=== PATIENT | female | born 1995 | race Caucasian/White ===

== ENCOUNTER → 2019-08-29 | Outpatient (CLI) ==
[~2019-08-29] MED LIST: BIRTH CONTROL; CIPR-225 PO; HYDR-3730 PO; LEVO1TAB20 PO; LEVO1TAB9 PO; NITR100C10 PO; ONDA4TAB11 PO
== END ==
LOC: LABNPT 11:30 → MERGE 11:30
PROVIDERS: ATTEND Obstetrics & Gynecology
DX: Z53.9 Procedure and treatment not carried out, unspecified reason (principal)

== ENCOUNTER → 2019-08-30 | Outpatient (CLI) | payer BC ==
--- NOTE | 2019-08-30 13:37 | Diagnostic Imaging Report ---
INDICATION: Vaginal bleeding. FINDINGS: There is an intrauterine gestational sac containing a pole. Gestation is approximately 6 weeks 5 days. heart rate was recorded at 132 bpm. Gestational sac shape is within normal limits. No isaura-gestational sac hemorrhage is detected. The right ovary measures 4.5 x 3.2 x 2.2 cm and the left ovary measures 2.5 x 1.7 x 1.3 cm. Right ovary does contain a 2 cm cyst. Left ovary is unremarkable. IMPRESSION: Single live IUP 6 weeks 5 days gestational age. Estimated date of confinement sonographically is 04/19/2020. Dictated by: Dictated on workstation # [id number]
== END ==
LOC: MERGE 12:35 → RAD 12:35
PROVIDERS: ATTEND Obstetrics & Gynecology
DX: O20.9 Hemorrhage in early pregnancy, unspecified (principal); Z3A.01 Less than 8 weeks gestation of pregnancy
CPT/HCPCS: 76801; 76817

== ENCOUNTER → 2019-12-04 | Outpatient (CLI) | payer BC ==
--- NOTE | 2019-12-04 11:04 | Diagnostic Imaging Report ---
INDICATION: survey. TECHNIQUE: Multiple real-time grayscale images were obtained over the gravid uterus. COMPARISON: 08/30/2019. FINDINGS: There is a single live fetus in a cephalic presentation. heart rate was recorded at 146 bpm. Placenta is anterior. Amniotic fluid index is 16.3 cm. Cervical length is 4.7 cm. survey demonstrates kidneys, bladder and stomach to be unremarkable. There is a three-vessel cord with normal insertion. spine is unremarkable. brain and four-chamber heart views are somewhat limited due to position. Biometrical measurements are as follows: Biparietal 4.89 cm, age 20 weeks 6 days. Head circumference 18.68 cm, age 21 weeks 1 days. Abdominal circumference 15.41 cm, age 20 weeks 5 days. Femur length 3.62 cm, age 21 weeks 4 days. Sonographic estimate age: 21 weeks 1 days. Sonographic estimated date of delivery: 04/14/2020. Estimated Weight: 392 gm (+/- 57 gm). LMP percentile: 69%. heart rate: 146 beats per minute. number: 1 of 1. IMPRESSION: Single live IUP approximately 21 weeks gestational age showing normal interval growth when compared with prior exam. No complicating features are detected. brain anatomy and 4-chamber heart views are somewhat limited due to position and follow-up could be performed. Dictated by: Dictated on workstation # [id number]
== END ==
LOC: RAD 09:48
PROVIDERS: ATTEND Nurse Practitioner Women's Health
DX: Z36.89 Encounter for other specified antenatal screening (principal); Z3A.21 21 weeks gestation of pregnancy
CPT/HCPCS: 76805

== ENCOUNTER → 2020-01-17 | Outpatient (CLI) | payer BC ==
--- NOTE | 2020-01-17 14:36 | Diagnostic Imaging Report ---
INDICATION: Followup anatomy. TECHNIQUE: Multiple real-time grayscale images were obtained over the gravid uterus. COMPARISON: 12/04/2019 FINDINGS: There is a single live fetus in a cephalic presentation. heart motion was detected but heart rate was not measured. Placenta is anterior. There is a four-chamber heart. brain appears unremarkable. IMPRESSION: Unremarkable limited followup obstetrical ultrasound. Dictated by: Dictated on workstation # [id number]
== END ==
LOC: RAD 12:59
PROVIDERS: ATTEND Obstetrics & Gynecology
DX: Z36.9 Encounter for antenatal screening, unspecified (principal); Z3A.22 22 weeks gestation of pregnancy
CPT/HCPCS: 76816

== ENCOUNTER → 2021-04-16 | Outpatient (CLI) | payer BC ==
[~2021-04-16] MED LIST changes: +ACET-93 PO; +DCS100C PO; +FERR325T18 PO; +IBUP-844 PO; +PREN1TAB79 PO
--- NOTE | 2021-04-16 13:22 | Diagnostic Imaging Report ---
INDICATION: survey TECHNIQUE: Multiple real-time grayscale images were obtained over the gravid uterus. COMPARISON: None FINDINGS: There are no prior studies available for comparison. There is a single live fetus in breech presentation. heart motion is noted and a rate of 146 BPM is recorded. There were no abnormalities identified. The placenta is posterior and there is no previa. The amniotic fluid volume is within normal limits. The cervix was identified and measures 3.0 cm in length (normal 3.0 cm or greater). The growth perimeters are fairly uniform. Biometrical measurements are as follows: Biparietal 4.7 cm, age 20 weeks 2 days. Head circumference 17.42 cm, age 20 weeks 0 days. Abdominal circumference 14.74 cm, age 20 weeks 1 days. Femur length 3.46 cm, age 21 weeks 0 days. Sonographic estimate age: 20 weeks 3 days. Sonographic estimated date of delivery: 08/31/21. Estimated Weight: 350 gm (+/- +/- 51g gm). LMP percentile: 59%. heart rate: 146 beats per minute. number: 1 of 1. IMPRESSION: 1. There is a single live fetus in breech presentation of approximately 20 weeks 3 days gestation +/- 1.5 weeks. EDC is 08/31/2021. 2. There are no abnormalities identified. 3. The growth perimeters are fairly uniform. Dictated by: Dictated on workstation # [id number]
== END ==
LOC: RAD 12:00
PROVIDERS: ATTEND Obstetrics & Gynecology
DX: Z34.92 Encounter for supervision of normal pregnancy, unspecified, second trimester (principal); Z3A.20 20 weeks gestation of pregnancy
CPT/HCPCS: 76805

== ENCOUNTER → 2021-05-13 | Outpatient (CLI) | payer BC ==
--- NOTE | 2021-05-13 16:01 | Diagnostic Imaging Report ---
INDICATION: Followup cervical length. TECHNIQUE: Multiple real-time grayscale images were obtained over the gravid uterus. COMPARISON: 04/16/2021. FINDINGS: There is single live fetus in a transverse presentation head to maternal right. Heart rate was recorded 142 bpm. Placenta is posterior. Amniotic fluid index is normal. Cervical length is 4.2 cm. IMPRESSION: Cervical length 4.2 cm on today's study. Dictated by: Dictated on workstation # [id number]
== END ==
LOC: RAD 12:00
PROVIDERS: ATTEND Obstetrics & Gynecology
DX: Z36.1 Encounter for antenatal screening for raised alphafetoprotein level (principal); Z36.89 Encounter for other specified antenatal screening
CPT/HCPCS: 76816

== ENCOUNTER 2021-08-31 10:14 | Inpatient (IN) | payer BC ==
[2021-08-31] VITALS (49 sets, daily range): BP systolic 86–158; BP diastolic 41–98
[~2021-08-31] VITALS: Ht 170.2 cm; Wt 91.3 kg
[~2021-08-31 10:14] MED LIST changes: -DCS100C PO; +DOCU-239 PO
[2021-08-31 10:45] LABS: BILIRUBIN,URINE NEGATIVE (NEGATIVE); CLARITY,URINE CLEAR; COLOR,URINE YELLOW; GLUCOSE, URINE (UA) NEGATIVE (NEGATIVE); KETONES,URINE NEGATIVE (NEGATIVE); LEUKOCYTE ESTERASE ,URINE 2+ (NEGATIVE); NITRITE,URINE NEGATIVE (NEGATIVE); PROTEIN,URINE NEGATIVE (NEGATIVE)
[2021-08-31 11:01] LABS: BACTERIA,URINE FEW /HPF
[2021-08-31] MEDS ORDERED: D5 LR IV SOLUTION 1,000 ML IV SCH (11:30)
[2021-08-31] MEDS ORDERED: MINERAL OIL CONCENTRATE 99.9% 15 ML UDC TOP PRN (11:30)
[2021-08-31 11:49] LABS: BASOPHILS % (AUTO) 0 % (0-10); EOSINOPHILS # (AUTO) 0.1 10^3/uL (0.0-0.3); EOSINOPHILS % (AUTO) 1 % (0-10); HEMATOCRIT 34 % (35-52); HEMOGLOBIN 10.8 g/dL (11.5-16.0); LYMPHOCYTES # (AUTO) 1.7 10^3/uL (1.0-4.0); LYMPHOCYTES % (AUTO) 21 % (12-44); MEAN CORPUSCULAR HEMOGLOBIN 25 pg (25-34); MEAN CORPUSCULAR HGB CONC 32 g/dL (32-36); MEAN CORPUSCULAR VOLUME 81 fL (80-99); MEAN PLATELET VOLUME 11.1 fL (9.0-12.2); MONOCYTES # (AUTO) 0.5 10^3/uL (0.0-1.0); MONOCYTES % (AUTO) 6 % (0-12); NEUTROPHILS # (AUTO) 5.9 10^3/uL (1.8-7.8); NEUTROPHILS % (AUTO) 73 % (42-75); PLATELET COUNT 195 10^3/uL (130-400); WHITE BLOOD COUNT 8.1 10^3/uL (4.3-11.0)
[2021-08-31] MEDS ORDERED: FLU QUADRIvalent (3YOA+) 60 mcg/0.5 ml 2021-22(AFLURIA) IM ONE (13:30)
[2021-08-31] MEDS ORDERED: CATHETER FLUSH 10 ML SYR IV SCH (14:00)
[2021-08-31] MEDS ORDERED: fentaNYL 2 mcg/ml BUPIVA 0.125 100 ML ONE (14:59)
[2021-08-31] MEDS ORDERED: fentaNYL INJ 100 MCG/2 ML AMP ONE (15:05)
[2021-08-31] MEDS ORDERED: BUPIVACAINE 0.25% 30 ML (SENSORCAINE) VIAL ONE (15:05)
[2021-08-31] MEDS ORDERED: ONDANSETRON 4 MG/2 ML (SDV) Z0FRAN IV PRN (15:15)
[2021-08-31] MEDS ORDERED: LACTATED RINGERS 1,000 ML IV ONE ×2 (15:15→17:00)
[2021-08-31] MEDS ORDERED: fentaNYL 2 mcg/ml BUPIVA 0.125 100 ML IV SCH (15:15)
[2021-08-31] MEDS ORDERED: CATHETER FLUSH 10 ML SYR IV PRN (15:15)
[2021-08-31] MEDS ORDERED: NALOXONE 0.4 MG/ML 1 ML (NARCAN) VIAL IV PRN ×2 (15:15→23:45)
[2021-08-31] MEDS ORDERED: diphenhydrAMINE 50 MG/ML INJ (BENADRYL) IV PRN (15:15)
[2021-08-31] MEDS ORDERED: OXYTOCIN PRE-MIX DRIP 500 ML IV SCH ×2 (16:30→23:45)
--- NOTE | 2021-08-31 20:23 | History & Physical-OB ---
OB - Chief Complaint & HPI Date/Time Date of Admission: Date of Admission: Aug 31, 2021 at 11:25 Date seen by a Provider: Aug 31, 2021 Time Seen by a Provider: 13:00 Chief Complaint/History OB-Reason for Admission/Chief: Onset of Labor Hx : 2 Hx Para: 1 Expected Date of Delivery: Sep 02, 2021 Gestational Age in Weeks: 39 Gestational Age in Days: 5 Other reason for admission: Patient presents with complaint of contractions. She was 4 cm dilated on admission and ivon every 6 minutes. Was 2-3 cm in the office. Scheduled for induction on 09/02/2021., Admission Nurse Assessment Rev: Yes History of Labs O+/- HIV - HBsAg - Hep C - Rub I VDRL NR GBS - Other Uncomplicated Allergies and Home Medications Allergies Coded Allergies: Sulfa (Sulfonamide Antibiotics) (Verified Allergy, Unknown, 06/27/16) Patient Home Medication List Home Medication List Reviewed: Yes Ferrous Sulfate (Ferrous Sulfate) 325 Mg Tablet, 325 MG PO DAILY Prescribed by: ARTHUR BRIDGES on 04/15/20837 Vit W-Ca,Fe,FA(<1 mg) ( Vitamins) 1 Each Tablet, 1 EACH PO DAILY, (Reported) Entered as Reported by: GISELLA PARKER on 04/13/20 183 Discontinued Medications Acetaminophen (Acetaminophen) 500 Mg Tablet, 1,000 MG PO Q8HR Discontinued Reason: No Longer Taking Prescribed by: ARTHUR BRIDGES on 04/15/20837 Last Action: Discontinued Docusate Sodium (Dok) 100 Mg Capsule, 100 MG PO BID Discontinued Reason: No Longer Taking Prescribed by: ARTHUR BRIDGES on 04/15/20837 Last Action: Discontinued Ibuprofen (Ibu) 600 Mg Tablet, 600 MG PO Q6HR Discontinued Reason: No Longer Taking Prescribed by: ARTHUR BRIDGES on 04/15/20837 Last Action: Discontinued OB - History Hx of Present Care: Yes Ultrasounds: Normal mid trimester US Obstetrical Complications: None Medical Complications: None Information Induced Hypertension: No Maternal Gestational Diabetes: No Hemorrhage: No Obstetrical History Hx : 2 Hx Para: 1 Hx # Term Pregnancies: 1 Hx # Pregnancies: 0 Number of Living Children: 1 Hx Termination: No Hx Multiple Gestation: No Hx Ectopic : No Hx Stillbirth: No Hx Complication: No Hx Induced Hypertens: No Hx Maternal Gestational Diabet: No Hx Hemorrhage: No Delivery History Hx Dystocia: No Hx Forceps Assisted Delivery: No Hx Vacuum Extraction Assisted: No Hx Placenta Abnormality: No Hx Distress: No Hx Large For Gestational Age I: No Hx Small for Gestational Age I: No Hx Section: No Hx Blood Disorders: No Adverse Rxn to Tranfusion: No Patient Past Medical History NC Social History/Family History Alcohol Use: Denies Use Recreational Drug Use: No Smoking Cessation: Never smoker Immunizations Hepatitis A: Yes Hepatitis B: Yes Tetanus Booster (TDap): Less than 5yrs (06/17/21) Date of Influenza Vaccine: Aug 20, 2015 Rubella: immune RPR/VDRL: Negative GBS Status: Negative HBsAG: Negative OB - Admission Exam Physical Exam Vitals: Vital Signs 08/31/21 08/31/21 18:15 19:45 Temp 36.8 Pulse 75 Resp 18 B/P (MAP) 129/84 (99) Pulse Ox 100 O2 Delivery Room Air HEENT: NCAT Heart: Rhythm Normal Lungs: Clear Abdomen: Gravid Extremities: Normal Reflexes: Normal Cervical Dilatation: 4cm Effacement: 75% Station: -2 Membranes: Intact Heart Rate: 140's Accelerations: Accelerations Present Decelerations: No Decelerations Short Term Variability: Present [place] Variability: Average (6-25) Contractions on Admission: 6-10 Minutes Apart Labs Laboratory Tests Test 08/31/21 10:25 08/31/21 11:36 Range/Units Urine Color YELLOW Urine Clarity CLEAR Urine pH 7.0 5-9 Urine Specific [place] <=1.005 1.016-1.022 Urine Protein NEGATIVE NEGATIVE Urine Glucose (UA) NEGATIVE NEGATIVE Urine Ketones NEGATIVE NEGATIVE Urine Nitrite NEGATIVE NEGATIVE Urine Bilirubin NEGATIVE NEGATIVE Urine Urobilinogen 0.2 < = 1.0 MG/DL Urine Leukocyte Esterase 2+ H NEGATIVE Urine RBC (Auto) NEGATIVE NEGATIVE Urine RBC NONE /HPF Urine WBC 5-10 H /HPF Urine Squamous Epithelial Cells 5-10 /HPF Urine Crystals NONE /LPF Urine Bacteria FEW H /HPF Urine Casts NONE /LPF Urine Mucus NEGATIVE /LPF Urine Culture Indicated YES White Blood Count 8.1 4.3-11.0 10^3/uL Red Blood Count 4.25 3.80-5.11 10^6/uL Hemoglobin 10.8 L 11.5-16.0 g/dL Hematocrit 34 L 35-52 % Mean Corpuscular Volume 81 80-99 fL Mean Corpuscular Hemoglobin 25 25-34 pg Mean Corpuscular Hemoglobin Concent 32 32-36 g/dL Red Cell Distribution Width 13.8 10.0-14.5 % Platelet Count 195 130-400 10^3/uL Mean Platelet Volume 11.1 9.0-12.2 fL Immature Granulocyte % (Auto) 1 % Neutrophils (%) (Auto) 73 42-75 % Lymphocytes (%) (Auto) 21 12-44 % Monocytes (%) (Auto) 6 0-12 % Eosinophils (%) (Auto) 1 0-10 % Basophils (%) (Auto) 0 0-10 % Neutrophils # (Auto) 5.9 1.8-7.8 10^3/uL Lymphocytes # (Auto) 1.7 1.0-4.0 10^3/uL Monocytes # (Auto) 0.5 0.0-1.0 10^3/uL Eosinophils # (Auto) 0.1 0.0-0.3 10^3/uL Basophils # (Auto) 0.0 0.0-0.1 10^3/uL Immature Granulocyte # (Auto) 0.0 0.0-0.1 10^3/uL OB - Assessment/Plan/Diagnosis Assessment Assessment: active labor Admission Dx 39 weeks labor Admission Status: Inpatient Order (span 2 midnights) Reason for Inpatient Admission: labor Plan Plan: Expectant Management ARTHUR BRIDGES DO Aug 31, 2021 20:23
[2021-08-31] MEDS ORDERED: LIDOCAINE/EPI 2% 1:200,00 (XYLOCAINE) 20 ML VIAL ONE (23:23)
--- NOTE | 2021-08-31 23:42 | OB Labor & Delivery Record ---
Vag Delivery Note Vag Delivery Note Date of Delivery: 08/31/21 Preoperative Diagnosis: Kerry Hay is a 26 /Para 2 / 1, Gestational Age 39 5/7 weeks in labor Postoperative Diagnosis: Same Surgeon: ARTHUR BRIDGES Anesthesia: epidural, local Delivery Type: vacuum assisted vaginal delivery Findings: [] Viable male infant, apgars 8/9, weight 10#4 ounces Lacerations: 2nd degree Intact placenta with 3 vessel cord. No nuchal cord, body cord or shoulder dystocia Estimated Blood Loss: 400 ml Complications: None Condition: Stable Description of Procedure: The patient is a 26 year old female who presented in labor. She was admitted and informed consent was obtained. Her labor course was remarkable for augmentation with pitocin, AROM at 8 cm. She progressed to complete dilatation and began to push. She was then set up for delivery. Due to prolonged deceleration of heartrate to 70-90 bpm, the vacuum was placed at + 2 station. With 2 contractions and 6 pushes, 1 popoff, the 's head was delivered atraumatically in the LIZANDRO position. The shoulders and remainder of the infant's body were then delivered without difficulty. Upon delivery, the head was held below the level of the perineum and the mouth and nares were bulb suctioned. The cord was doubly clamped and cut and the infant was handed off to the pediatric staff. An intact placenta with 3-vessel cord delivered via Eric and there was found to be minimal bleeding.~ Vigorous fundal massage was performed and the fundus was found to be firm. IV oxytocin was given. Examination of the vagina and perineum revealed a 2nd degree laceration repaired in the usual fashion with 3-0 vicryl suture. Following the repair, sponge, instrument and needle counts were correct. Mom and baby were both in stable condition in the labor suite. Vitals - Labs Vital Signs - I&O Vital Signs Date Time Temp Pulse Resp B/P (MAP) Pulse Ox O2 Delivery O2 Flow Rate FiO2 08/31/21 22:30 72 18 144/89 (107) Room Air 08/31/21 22:15 75 18 136/87 (103) Room Air 08/31/21 22:00 76 18 129/84 (99) Room Air 08/31/21 21:45 76 18 130/83 (99) Room Air 08/31/21 21:30 73 18 131/86 (101) Room Air 08/31/21 21:15 86 18 135/86 (102) Room Air 08/31/21 21:00 77 18 139/91 (107) Room Air 08/31/21 20:45 81 18 142/84 (103) Room Air 08/31/21 20:30 80 18 130/86 (101) Room Air 08/31/21 20:15 37.1 89 18 144/85 (104) Room Air 08/31/21 20:00 77 18 135/89 (104) Room Air 08/31/21 19:45 75 18 129/84 (99) Room Air 08/31/21 19:30 74 18 131/86 (101) Room Air 08/31/21 19:15 71 18 129/86 (100) Room Air 08/31/21 19:00 72 18 130/86 (101) Room Air 08/31/21 18:45 73 18 127/84 (98) Room Air 08/31/21 18:30 68 18 131/83 (99) Room Air 08/31/21 18:15 36.8 81 18 142/72 (95) 100 Room Air 08/31/21 18:00 68 18 126/84 (98) 98 Room Air 08/31/21 17:45 75 18 125/84 (98) 98 Room Air 08/31/21 17:30 73 18 123/84 (97) 97 Room Air 08/31/21 17:15 77 18 121/78 (92) 97 Room Air 08/31/21 17:00 72 18 122/77 (92) 99 Room Air 08/31/21 16:45 74 18 137/83 (101) 99 Room Air 08/31/21 16:30 81 18 123/84 (97) 97 Room Air 08/31/21 16:15 80 18 122/78 (93) 99 Room Air 08/31/21 15:58 36.1 78 18 123/81 (95) 99 Room Air 08/31/21 15:55 78 18 116/76 (89) 99 Room Air 08/31/21 15:52 69 18 121/83 (96) 99 Room Air 08/31/21 15:50 60 18 121/85 (97) 99 Room Air 08/31/21 15:47 59 18 86/51 (63) 99 Room Air 08/31/21 15:45 51 18 101/41 (61) 99 Room Air 08/31/21 15:40 85 18 129/77 (94) 93 Room Air 08/31/21 15:39 72 18 110/70 (83) 97 Room Air 08/31/21 15:35 74 18 127/75 (92) 97 Room Air 08/31/21 15:31 93 18 125/75 (92) 96 Room Air 08/31/21 15:28 82 18 122/73 (89) 94 Room Air 08/31/21 15:25 85 18 140/70 (93) 96 Room Air 08/31/21 15:21 36.9 91 18 97 Room Air 08/31/21 15:20 86 18 134/87 (103) 99 Room Air 08/31/21 15:19 79 18 137/88 (104) 99 Room Air 08/31/21 15:16 93 18 158/98 (118) 99 Room Air 08/31/21 15:13 93 18 158/98 (118) 99 Room Air 08/31/21 13:00 85 18 136/94 (108) Room Air Labs Laboratory Tests 08/31/21 10:25: Urine Color YELLOW, Urine Clarity CLEAR, Urine pH 7.0, Urine Specific [place] <=1.005, Urine Protein NEGATIVE, Urine Glucose (UA) NEGATIVE, Urine Ketones NEGATIVE, Urine Nitrite NEGATIVE, Urine Bilirubin NEGATIVE, Urine Urobilinogen 0.2, Urine Leukocyte Esterase 2+H, Urine RBC (Auto) NEGATIVE, Urine RBC NONE, Ur ine WBC 5-10H, Urine Squamous Epithelial Cells 5-10, Urine Crystals NONE, Urine Bacteria FEWH, Urine Casts NONE, Urine Mucus NEGATIVE, Urine Culture Indicated YES 08/31/21 11:36: White Blood Count 8.1, Red Blood Count 4.25, Hemoglobin 10.8L, Hematocrit 34L, Mean Corpuscular Volume 81, Mean Corpuscular Hemoglobin 25, Mean Corpuscular Hemoglobin Concent 32, Red Cell Distribution Width 13.8, Platelet Count 195, Mean Platelet Volume 11.1, Immature Granulocyte % (Auto) 1, Neutrophils (%) (Auto) 73, Lymphocytes (%) (Auto) 21, Monocytes (%) (Auto) 6, Eosinophils (%) (Auto) 1, Basophils (%) (Auto) 0, Neutrophils # (Auto) 5.9, Lymphocytes # (Auto) 1.7, Monocytes # (Auto) 0.5, Eosinophils # (Auto) 0.1, Basophils # (Auto) 0.0, Immature Granulocyte # (Auto) 0.0 ARTHUR BRIDGES DO Aug 31, 2021 23:42
[2021-08-31] MEDS ORDERED: DIBUCAINE 1% OINTMENT 30 GM TUBE TOP PRN (23:45)
[2021-08-31] MEDS ORDERED: TETANUS,DIPTH,PERTUSS P/F (BOOSTRIX) 0.5 ML VIAL IM ONE (23:45)
[2021-08-31] MEDS ORDERED: BENZOCAINE/MENTHOL (DERMOPLAST) 56 ML CAN TP PRN (23:45)
[2021-08-31] MEDS ORDERED: WITCH HAZEL(TUCKS) 40 EA JAR TOP PRN (23:45)
[2021-08-31] MEDS ORDERED: MEASLES,MUMPS,RUBELLA 1 EA INJ SQ ONE (23:45)
[2021-09-01] VITALS (8 sets, daily range): BP systolic 131–158; BP diastolic 76–89
[2021-09-01] MEDS: IBUPROFEN 600 MG (MOTRIN) TAB PO SCH ×4 (01:52→20:37)
[2021-09-01 05:39] LABS: BASOPHILS % (AUTO) 0 % (0-10); EOSINOPHILS % (AUTO) 0 % (0-10); HEMATOCRIT 29 % (35-52); HEMOGLOBIN 9.2 g/dL (11.5-16.0); LYMPHOCYTES # (AUTO) 1.4 10^3/uL (1.0-4.0); LYMPHOCYTES % (AUTO) 10 % (12-44); MEAN CORPUSCULAR HEMOGLOBIN 25 pg (25-34); MEAN CORPUSCULAR HGB CONC 31 g/dL (32-36); MEAN CORPUSCULAR VOLUME 80 fL (80-99); MEAN PLATELET VOLUME 10.9 fL (9.0-12.2); MONOCYTES # (AUTO) 0.9 10^3/uL (0.0-1.0); MONOCYTES % (AUTO) 6 % (0-12); NEUTROPHILS # (AUTO) 11.5 10^3/uL (1.8-7.8); NEUTROPHILS % (AUTO) 83 % (42-75); PLATELET COUNT 162 10^3/uL (130-400); WHITE BLOOD COUNT 13.8 10^3/uL (4.3-11.0)
[2021-09-01] MEDS ORDERED: CATHETER FLUSH 10 ML SYR IV SCH (06:00)
[2021-09-01] MEDS: ACETAMINOPHEN 500 MG TAB (TYLENOL) PO SCH ×3 (06:30→22:30)
[2021-09-01] MEDS: DOCUSATE SODIUM 100 MG (COLACE) CAP PO SCH ×2 (08:12→20:37)
[2021-09-01] MEDS: PRENATAL VITAMIN 1 EA TAB PO SCH (08:13)
[2021-09-01] MEDS: FERROUS SULF 325 MG (IRON) TAB PO SCH (08:13)
--- NOTE | 2021-09-01 10:13 | Postpartum Progress Note ---
Note Note Day # 1 Subjective: Patient is without complaints. Ambulating, voiding. Tolerating a regular diet without nausea or vomiting. Normal lochia. Pain is well controlled with oral pain medications. Breast feeding. Objective: Physical Exam: General - Alert and oriented, no apparent distress Abdomen - Soft, appropriately tender to palpation, non-distended, fundus firm at umbilicus Extremities - no edema, negative Ariana's bilaterally Assessment: Post- day # 1, status post vaginal delivery. Recovering well, hemodynamically stable Acute blood loss anemia Plan: Routine care. Encourage breast feeding. Encourage ambulation. Ferrous sulfate supplementation. Plan for discharge tomorrow Vitals - Labs Vital Signs - I&O Vital Signs Date Time Temp Pulse Resp B/P (MAP) Pulse Ox O2 Delivery O2 Flow Rate FiO2 09/01/21 08:14 36.4 77 18 133/76 (95) 98 Room Air 09/01/21 05:00 37.1 74 18 154/86 (108) Room Air 09/01/21 00:45 76 18 158/83 (108) Room Air 09/01/21 00:30 86 18 131/85 (100) Room Air 09/01/21 00:00 101 18 149/85 (106) Room Air 08/31/21 23:45 72 18 143/86 (105) Room Air 08/31/21 23:30 100 18 145/89 (107) Room Air 08/31/21 23:15 73 18 141/98 (112) Room Air 08/31/21 23:00 72 18 140/85 (103) Room Air 08/31/21 22:45 72 18 144/89 (107) Room Air 08/31/21 22:30 72 18 144/89 (107) Room Air 08/31/21 22:15 75 18 136/87 (103) Room Air 08/31/21 22:00 76 18 129/84 (99) Room Air 08/31/21 21:45 76 18 130/83 (99) Room Air 08/31/21 21:30 73 18 131/86 (101) Room Air 08/31/21 21:15 86 18 135/86 (102) Room Air 08/31/21 21:00 77 18 139/91 (107) Room Air 08/31/21 20:45 81 18 142/84 (103) Room Air 08/31/21 20:30 80 18 130/86 (101) Room Air 08/31/21 20:15 37.1 89 18 144/85 (104) Room Air 08/31/21 20:00 77 18 135/89 (104) Room Air 08/31/21 19:45 75 18 129/84 (99) Room Air 08/31/21 19:30 74 18 131/86 (101) Room Air 08/31/21 19:15 71 18 129/86 (100) Room Air 08/31/21 19:00 72 18 130/86 (101) Room Air 08/31/21 18:45 73 18 127/84 (98) Room Air 08/31/21 18:30 68 18 131/83 (99) Room Air 08/31/21 18:15 36.8 81 18 142/72 (95) 100 Room Air 08/31/21 18:00 68 18 126/84 (98) 98 Room Air 08/31/21 17:45 75 18 125/84 (98) 98 Room Air 08/31/21 17:30 73 18 123/84 (97) 97 Room Air 08/31/21 17:15 77 18 121/78 (92) 97 Room Air 08/31/21 17:00 72 18 122/77 (92) 99 Room Air 08/31/21 16:45 74 18 137/83 (101) 99 Room Air 08/31/21 16:30 81 18 123/84 (97) 97 Room Air 08/31/21 16:15 80 18 122/78 (93) 99 Room Air 08/31/21 15:58 36.1 78 18 123/81 (95) 99 Room Air 08/31/21 15:55 78 18 116/76 (89) 99 Room Air 08/31/21 15:52 69 18 121/83 (96) 99 Room Air 08/31/21 15:50 60 18 121/85 (97) 99 Room Air 08/31/21 15:47 59 18 86/51 (63) 99 Room Air 08/31/21 15:45 51 18 101/41 (61) 99 Room Air 08/31/21 15:40 85 18 129/77 (94) 93 Room Air 08/31/21 15:39 72 18 110/70 (83) 97 Room Air 08/31/21 15:35 74 18 127/75 (92) 97 Room Air 08/31/21 15:31 93 18 125/75 (92) 96 Room Air 08/31/21 15:28 82 18 122/73 (89) 94 Room Air 08/31/21 15:25 85 18 140/70 (93) 96 Room Air 08/31/21 15:21 36.9 91 18 97 Room Air 08/31/21 15:20 86 18 134/87 (103) 99 Room Air 08/31/21 15:19 79 18 137/88 (104) 99 Room Air 08/31/21 15:16 93 18 158/98 (118) 99 Room Air 08/31/21 15:13 93 18 158/98 (118) 99 Room Air 08/31/21 13:00 85 18 136/94 (108) Room Air I & O 09/01/21 07:00 Intake Total 2000 ml Balance 2000 ml Labs Laboratory Tests 08/31/21 10:25: Urine Color YELLOW, Urine Clarity CLEAR, Urine pH 7.0, Urine Specific [place] <=1.005, Urine Protein NEGATIVE, Urine Glucose (UA) NEGATIVE, Urine Ketones NEGATIVE, Urine Nitrite NEGATIVE, Urine Bilirubin NEGATIVE, Urine Urobilinogen 0.2, Urine Leukocyte Esterase 2+H, Urine RBC (Auto) NEGATIVE, Urine RBC NONE, Urine WBC 5-10H, Urine Squamous Epithelial Cells 5-10, Urine Crystals NONE, Urine Bacteria FEWH, Urine Casts NONE, Urine Mucus NEGATIVE, Urine Culture Indicated YES 08/31/21 11:36: White Blood Count 8.1, Red Blood Count 4.25, Hemoglobin 10.8L, Hematocrit 34L, Mean Corpuscular Volume 81, Mean Corpuscular Hemoglobin 25, Mean Corpuscular Hemoglobin Concent 32, Red Cell Distribution Width 13.8, Platelet Count 195, Mean Platelet Volume 11.1, Immature Granulocyte % (Auto) 1, Neutrophils (%) (Auto) 73, Lymphocytes (%) (Auto) 21, Monocytes (%) (Auto) 6, Eosinophils (%) (Auto) 1, Basophils (%) (Auto) 0, Neutrophils # (Auto) 5.9, Lymphocytes # (Auto) 1.7, Monocytes # (Auto) 0.5, Eosinophils # (Auto) 0.1, Basophils # (Auto) 0.0, Immature Granulocyte # (Auto) 0.0 09/01/21 05:15: White Blood Count 13.8H, Red Blood Count 3.68L, Hemoglobin 9.2L, Hematocrit 29L, Mean Corpuscular Volume 80, Mean Corpuscular Hemoglobin 25, Mean Corpuscular Hemoglobin Concent 31L, Red Cell Distribution Width 13.9, Platelet Count 162, Mean Platelet Volume 10.9, Immature Granulocyte % (Auto) 0, Neutrophils (%) (Auto) 83H, Lymphocytes (%) (Auto) 10L, Monocytes (%) (Auto) 6, Eosinophils (%) (Auto) 0, Basophils (%) (Auto) 0, Neutrophils # (Auto) 11.5H, Lymphocytes # (Auto) 1.4, Monocytes # (Auto) 0.9, Eosinophils # (Auto) 0.0, Basophils # (Auto) 0.0, Immature Granulocyte # (Auto) 0.1 Microbiology 08/31/21 Urine Culture - Final, Complete Gram Pos Mixed Bacterial Marhta See Comments NAOMI ESPINOZA ALMOND PAN FINISHER Sep 01, 2021 10:13
--- NOTE | 2021-09-01 14:02 | Anesthesia-Regional Post-Op ---
Regional Patient Condition Mental Status: Alert, Oriented x3 Circulation: Same as Pre-Op Headache: Absent Sensation: Full Recovery Motor Block: Absent Post Op Complications Complications None Follow Up Care/Instructions Patient Instructions None needed. Anesthesia/Patient Condition Patient is doing well, no complaints, stable vital signs, no apparent adverse anesthesia problems. No complications reported per nursing. SANJAY HOFFMAN CRNA Sep 01, 2021 14:02
[2021-09-01] MEDS ORDERED: IBUP-844 PO (20:00)
[2021-09-01] MEDS ORDERED: ACET-93 PO (20:00)
[2021-09-02] VITALS: BP 137/77
[2021-09-02 04:00] VITALS: BP 129/77
[2021-09-02] MEDS: IBUPROFEN 600 MG (MOTRIN) TAB PO SCH ×3 (04:00→15:45)
[2021-09-02] MEDS: PRENATAL VITAMIN 1 EA TAB PO SCH (05:58)
[2021-09-02] MEDS: ACETAMINOPHEN 500 MG TAB (TYLENOL) PO SCH ×2 (05:58→15:45)
--- NOTE | 2021-09-02 08:24 | Discharge Inst-Women's Service ---
Discharge Inst-Women's Serv Depart Medication/Instructions New, Converted or Re-Newed RX: Transmitted to Pharmacy Final Diagnosis vaginal delivery antepartum and acute blood loss anemia Problems Reviewed?: Yes Consults/Follow Up Additional Follow Up: Yes (6 week post ) Activity Activity: Activity as Tolerated Driving Instructions: You May Drive NO SMOKING: NO SMOKING Nothing Inside Vagina: No Douching, No [place], No Tampons Diet Discharge Diet: No Restrictions Symptoms to Report to : Bleeding Excessive, Pain Increased, Fever Over 101 Degrees F, Vaginal Bleeding Increase, Vaginal Discharge Foul For Any Problems or Questions: Contact Your Physician ARTHRU BRIDGES DO Sep 02, 2021 08:24
[2021-09-02] MEDS: DOCUSATE SODIUM 100 MG (COLACE) CAP PO SCH (09:19)
[2021-09-02] MEDS: FERROUS SULF 325 MG (IRON) TAB PO SCH (09:19)
[2021-09-02 09:20] VITALS: BP 136/87
--- NOTE | 2021-09-02 11:30 | Postpartum Progress Note ---
Note Note Day # 2 Subjective: Patient is without complaints. Ambulating, voiding. Tolerating a regular diet without nausea or vomiting. Normal lochia. Pain is well controlled with oral pain medications. Breast feeding. Objective: Physical Exam: General - Alert and oriented, no apparent distress Abdomen - Soft, appropriately tender to palpation, non-distended, fundus firm at umbilicus Extremities - no edema, negative Ariana's bilaterally Assessment: Post- day # 2, status post vaginal delivery. Recovering well, hemodynamically stable Acute blood loss anemia Plan: Routine care. Encourage breast feeding. Encourage ambulation. Ferrous sulfate supplementation. Plan for discharge today Vitals - Labs Vital Signs - I&O Vital Signs Date Time Temp Pulse Resp B/P (MAP) Pulse Ox O2 Delivery O2 Flow Rate FiO2 09/02/21 09:20 36.3 80 16 136/87 (103) 97 Room Air 09/02/21 04:00 36.4 75 16 129/77 (94) 96 Room Air 09/02/21 00:00 36.6 73 18 137/77 (97) 97 Room Air 09/01/21 20:00 36.6 80 18 135/89 (104) 98 Room Air 09/01/21 17:54 36.8 75 18 148/88 (108) 97 Room Air 09/01/21 13:47 36.1 78 18 136/88 (104) Room Air Labs Microbiology 08/31/21 Urine Culture - Final, Complete Gram Pos Mixed Bacterial Martha See Comments NAOMI ESPINOZA MACHINE HOSTLER Sep 02, 2021 11:29
== END 2021-09-02 15:55 | disposition home or self-care (01) | DRG 806 ==
LOC: WSo 10:14 → LDRP 10:15 → WSo 11:25 → LDRP 11:25
PROVIDERS: ADMIT Obstetrics & Gynecology; ATTEND Obstetrics & Gynecology
PROC: 10D07Z6 Extraction of Products of Conception, Vacuum, Via Natural or Artificial Opening (ICD-10-PCS; principal; 2021-08-31)
PROC: 0KQM0ZZ Repair Perineum Muscle, Open Approach (ICD-10-PCS; 2021-08-31)
DX: O70.1 Second degree perineal laceration during delivery (principal); D62 Acute posthemorrhagic anemia; Z37.0 Single live birth; Z3A.39 39 weeks gestation of pregnancy; O76 Abnormality in fetal heart rate and rhythm complicating labor and delivery; O90.81 Anemia of the puerperium; Z88.2 Allergy status to sulfonamides
CPT/HCPCS: 36415; 81000; 85025; 86850; 86900; 86901; 87088; 99212

== ENCOUNTER 2022-12-22 00:57 | Emergency (ER) | payer BC ==
[~2022-12-22] VITALS: Ht 170 cm; Wt 77.1 kg
[2022-12-22 01:33] LABS: BILIRUBIN,URINE NEGATIVE (NEGATIVE); CLARITY,URINE CLEAR; COLOR,URINE YELLOW; GLUCOSE, URINE (UA) NEGATIVE (NEGATIVE); KETONES,URINE NEGATIVE (NEGATIVE); LEUKOCYTE ESTERASE ,URINE TRACE (NEGATIVE); NITRITE,URINE NEGATIVE (NEGATIVE); PROTEIN,URINE NEGATIVE (NEGATIVE)
--- NOTE | 2022-12-22 01:34 | ED General ---
General Chief Complaint: Psych/Social Disorder Stated Complaint: SHIVERING,NAUSEA,PINS & NEEDLES FEELING IN FEET Nursing Triage Note: PATIENT REPORTS THIS EVENING FELT ANXIOUS. STATES "IN MY HEAD" PATIENT STATES CONSTANT SHIVERING WITH LEFT LEG/FOOT NUMBNESS, IS NAUSEATED. STATES HAD THREE ALOCHOLIC BEVERAGES THIS EVENING WITH DINNER AND SOME DOMINIK. MILK. PATIENT DENIES SORE THROAT, FEVER, COUGH. STATES HX OF ANXIETY, NO DX THOUGH Source of Information: Patient Exam Limitations: No Limitations History of Present Illness Date Seen by Provider: Dec 22, 2022 Time Seen by Provider: 01:02 Initial Comments Here with report of feeling tingling and needles in her legs and feet with shivering tonight. States that she feels numb. Denies sore throat, runny nose or cough. Did admit to drinking a couple margaritas last night at dinner and then a glass of wine later. She did eat at one of the local [employer] food restaurants. She denies any issues with that. She had chocolate milk later did feel like she had a little diarrhea after that but thinks she may be a little lactose intolerant. Denies otherwise recent illness. She did have initial vaccination for COVID but has not had subsequent boosters. She did not get her flu shot. She denies any sick contacts. 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 Timing/Duration: 1 Hour Severity: Moderate Associated Systoms: No Cough, No Fever/Chills, No Nausea/Vomiting, No Shortness of Air, No Weakness Allergies and Home Medications Allergies Coded Allergies: Sulfa (Sulfonamide Antibiotics) (Verified Allergy, Unknown, 06/27/16) Patient Home Medication List Home Medication List Reviewed: Yes Acetaminophen (Acetaminophen) 500 Mg Tablet, 1,000 MG PO Q8HR Prescribed by: ARTHUR BRIDGES on 09/01/211999 Ferrous Sulfate (Ferrous Sulfate) 325 Mg Tablet, 325 MG PO DAILY Prescribed by: ARTHUR BRIDGES on 04/15/20 0838 Ibuprofen (Ibu) 600 Mg Tablet, 600 MG PO Q6HR Prescribed by: ARTHUR BRIDGES on 09/01/211999 Vit W-Ca,Fe,FA(<1 mg) ( Vitamins) 1 Each Tablet, 1 EACH PO DAILY, (Reported) Entered as Reported by: GISELLA PARKER on 04/13/20 1833 Review of Systems Review of Systems Constitutional: see HPI, chills; No fever EENTM: No nose congestion, No throat pain Respiratory: No cough, No short of breath Gastrointestinal: diarrhea; No vomiting Genitourinary: no symptoms reported Musculoskeletal: muscle pain; No muscle cramps Psychiatric/Neurological: Anxiety, Tingling Past Inicbon-Viksjp-Pkpkcf Hx Patient Social History Tobacco Use?: Yes Tobacco type used: Cigarettes Smoking Status: Current Someday Smoker Substance use?: Yes Substance type: Marijuana Additional substance use comme: 2 days ago Alcohol Use?: Yes Alcohol type: Hard Liquor, Wine Alcohol Frequency: Couple times a week Pt feels they are or have been: No Immunizations Up To Date Tetanus Booster (TDap): Less than 5yrs Influenza Vaccine Up-to-Date: No; Not Current First/Initial COVID19 Vaccinat: 2020 COVID19 Vaccine [employer]: [employer] Seasonal Allergies Seasonal Allergies: No Past Medical History Surgeries: Yes Tonsillectomy Respiratory: No Cardiac: No Neurological: No Reproductive Disorders: No Female Reproductive Disorders: Denies Genitourinary: No Gastrointestinal: No Musculoskeletal: No Endocrine: No HEENT: Yes (wears glasses) Cancer: No Psychosocial: No Integumentary: No Blood Disorders: No Adverse Reaction/Blood Tranf: No Family Medical History Reviewed Nursing Family Hx Alzheimer's disease Maternal Grandfather Dementia Maternal Grandfather Hypertension 19 MOTHER Maternal Grandmother Kidney stone G8 BROTHER Osteoporosis Maternal Grandfather Maternal Grandmother Physical Exam Vital Signs Vital Signs - First Documented 12/22/22 01:03 Temp 36.6 Pulse 112 Resp 18 B/P (MAP) 163/114 (130) Pulse Ox 99 O2 Delivery Room Air Capillary Refill : Less Than 3 Seconds Height, Weight, BMI Height: 5'7.00" Weight: 157lbs. 6.0oz. [id number]; 26.00 BMI Method:Stated General Appearance: No Apparent Distress, WD/WN HEENT: TMs Normal, Pharynx Normal Neck: Non Tender, Supple Respiratory: Lungs Clear, Normal Breath Sounds Cardiovascular: No Murmur, Tachycardia Gastrointestinal: Non Tender, Soft Back: Normal Inspection, No CVA Tenderness, No Vertebral Tenderness Extremity: Normal Inspection, Normal Range of Motion, Non Tender, No Calf Tenderness, No Pedal Edema Neurologic/Psychiatric: Alert, Oriented x3, No Motor/Sensory Deficits Skin: Normal Color, Warm/Dry Progress/Results/Core Measures Suspected Sepsis SIRS Temperature: Pulse: 112 Respiratory Rate: 18 Laboratory Tests 12/22/22 01:30: White Blood Count 8.4 Blood Pressure 163 /114 Mean: 130 Laboratory Tests 12/22/22 01:30: Creatinine 0.86, Platelet Count 317, Total Bilirubin 0.3 Results/Orders Lab Results Laboratory Tests Test 12/22/22 01:16 12/22/22 01:30 Range/Units Urine Color YELLOW Urine Clarity CLEAR Urine pH 7.0 5-9 Urine Specific Lingle <=1.005 1.016-1.022 Urine Protein NEGATIVE NEGATIVE Urine Glucose (UA) NEGATIVE NEGATIVE Urine Ketones NEGATIVE NEGATIVE Urine Nitrite NEGATIVE NEGATIVE Urine Bilirubin NEGATIVE NEGATIVE Urine Urobilinogen 0.2 < = 1.0 MG/DL Urine Leukocyte Esterase TRACE H NEGATIVE Urine RBC (Auto) NEGATIVE NEGATIVE Urine RBC NONE /HPF Urine WBC 0-2 /HPF Urine Squamous Epithelial Cells 0-2 /HPF Urine Crystals NONE /LPF Urine Bacteria TRACE /HPF Urine Casts NONE /LPF Urine Mucus NEGATIVE /LPF Urine Culture Indicated NO White Blood Count 8.4 4.3-11.0 10^3/uL Red Blood Count 4.55 3.80-5.11 10^6/uL Hemoglobin 13.3 11.5-16.0 g/dL Hematocrit 39 35-52 % Mean Corpuscular Volume 86 80-99 fL Mean Corpuscular Hemoglobin 29 25-34 pg Mean Corpuscular Hemoglobin Concent 34 32-36 g/dL Red Cell Distribution Width 12.2 10.0-14.5 % Platelet Count 317 130-400 10^3/uL Mean Platelet Volume 9.5 9.0-12.2 fL Immature Granulocyte % (Auto) 0 % Neutrophils (%) (Auto) 43 42-75 % Lymphocytes (%) (Auto) 48 H 12-44 % Monocytes (%) (Auto) 6 0-12 % Eosinophils (%) (Auto) 2 0-10 % Basophils (%) (Auto) 1 0-10 % Neutrophils # (Auto) 3.7 1.8-7.8 10^3/uL Lymphocytes # (Auto) 4.0 1.0-4.0 10^3/uL Monocytes # (Auto) 0.5 0.0-1.0 10^3/uL Eosinophils # (Auto) 0.2 0.0-0.3 10^3/uL Basophils # (Auto) 0.0 0.0-0.1 10^3/uL Immature Granulocyte # (Auto) 0.0 0.0-0.1 10^3/uL Sodium Level 139 135-145 MMOL/L Potassium Level 3.6 3.6-5.0 MMOL/L Chloride Level 105 98-107 MMOL/L Carbon Dioxide Level 22 21-32 MMOL/L Anion Gap 12 5-14 MMOL/L Blood Urea Nitrogen 8 7-18 MG/DL Creatinine 0.86 0.60-1.30 MG/DL Estimat Glomerular Filtration Rate 94 BUN/Creatinine Ratio 9 Glucose Level 114 H 70-105 MG/DL Calcium Level 9.4 8.5-10.1 MG/DL Corrected Calcium 9.1 8.5-10.1 MG/DL Total Bilirubin 0.3 0.1-1.0 MG/DL Aspartate Amino Transf (AST/SGOT) 15 5-34 U/L Alanine Aminotransferase (ALT/SGPT) 15 0-55 U/L Alkaline Phosphatase 71 40-136 U/L Total Protein 7.2 6.4-8.2 GM/DL Albumin 4.4 3.2-4.5 GM/DL TSH [facility] Testing 3.43 0.35-4.94 UIU/ML My Orders Orders - BENITA ARGUETA MD Cbc With Automated Diff (12/22/22 01:15) Comprehensive Metabolic Panel (12/22/22 01:15) Thyroid Analyzer (12/22/22 01:15) Ua Culture If Indicated (12/22/22 01:15) Urine Bedside (12/22/22 01:15) Vital Signs/I&O 12/22/22 01:03 Temp 36.6 Pulse 112 Resp 18 B/P (MAP) 163/114 (130) Pulse Ox 99 O2 Delivery Room Air Capillary Refill : Less Than 3 Seconds Blood Pressure Mean: 130 Progress Note : Progress Note Seen and evaluated. We will check basic labs including CBC and CMP as well as thyroid studies. UA and UCG ordered. Monitor patient. Differential includes thyroid dysfunction, electrolyte abnormality, anxiety, UTI 0219: UA is negative and unremarkable. CBC is normal throughout. Chemistry shows normal electrolytes, normal serum creatinine, normal LFTs and thyroid studies are also normal. Overall she is doing much better. I did discuss the results with the patient and her family. This may be result of anxiety. We did discuss return precautions and follow-up. She verbalized understanding and agreement. Discharged home. Departure Impression Primary Impression: Paresthesia Additional Impression: Anxiety Disposition: 01 HOME, SELF-CARE Condition: Improved Departure-Patient Inst. Decision time for Depature: 02:24 Referrals: NO,LOCAL PHYSICIAN (PCP/Family) Primary Care Physician Patient Instructions: Anxiety, Adult ED, Paresthesia (DC) Add. Discharge Instructions: All discharge instructions reviewed with patient and/or family. Voiced understanding. Follow-up with your medical providers for recheck and further evaluation and to discuss possibility of anxiety as a cause. Drink plenty of fluids and eat a normal diet. Return for breathing problems, weakness, vomiting, vision or balance problems, fever or other concerns as needed. BENITA ARGUETA MD Dec 22, 2022 01:34
[2022-12-22 01:37] LABS: BASOPHILS % (AUTO) 1 % (0-10); EOSINOPHILS # (AUTO) 0.2 10^3/uL (0.0-0.3); EOSINOPHILS % (AUTO) 2 % (0-10); HEMATOCRIT 39 % (35-52); HEMOGLOBIN 13.3 g/dL (11.5-16.0); LYMPHOCYTES % (AUTO) 48 % (12-44); MEAN CORPUSCULAR HEMOGLOBIN 29 pg (25-34); MEAN CORPUSCULAR HGB CONC 34 g/dL (32-36); MEAN CORPUSCULAR VOLUME 86 fL (80-99); MEAN PLATELET VOLUME 9.5 fL (9.0-12.2); MONOCYTES # (AUTO) 0.5 10^3/uL (0.0-1.0); MONOCYTES % (AUTO) 6 % (0-12); NEUTROPHILS # (AUTO) 3.7 10^3/uL (1.8-7.8); NEUTROPHILS % (AUTO) 43 % (42-75); PLATELET COUNT 317 10^3/uL (130-400); WHITE BLOOD COUNT 8.4 10^3/uL (4.3-11.0)
[2022-12-22 01:45] LABS: BACTERIA,URINE TRACE /HPF; SQUAMOUS EPITHELIAL CELL,UR 0-2 /HPF; WBC,URINE 0-2 /HPF
[2022-12-22 01:57] LABS: ALBUMIN 4.4 GM/DL (3.2-4.5); BILIRUBIN,TOTAL 0.3 MG/DL (0.1-1.0); CALCIUM 9.4 MG/DL (8.5-10.1); CREATININE SERUM 0.86 MG/DL (0.60-1.30); POTASSIUM 3.6 MMOL/L (3.6-5.0); TOTAL PROTEIN 7.2 GM/DL (6.4-8.2)
[2022-12-22 02:19] LABS: TSH (THYROID ANALYZER) 3.43 UIU/ML (0.35-4.94)
[2022-12-22 02:31] VITALS: BP 126/91
== END 2022-12-22 02:32 | disposition home or self-care (01) ==
LOC: EDUNIT# 00:57 → ER 01:00
DX: R20.2 Paresthesia of skin (principal); F41.9 Anxiety disorder, unspecified; F17.210 Nicotine dependence, cigarettes, uncomplicated
CPT/HCPCS: 36415; 80053; 81000; 84443; 84703; 85025